=== PATIENT | male | born 1990 | race Caucasian/White ===

== ENCOUNTER → 2017-07-23 | Emergency (ER) | payer MEDICAID, SELFPAY | PROVIDERS: Emergency Provider Student in an Organized Health Care Education/Training Program; Family Provider Emergency Medicine; Visit Provider Student in an Organized Health Care Education/Training Program | DX: Z53.29 Procedure and treatment not carried out because of patient's decision for other reasons (principal) ==

== ENCOUNTER → 2017-09-01 16:42 | Outpatient (REF) | payer MEDICAID, SELFPAY ==
[2017-09-01 18:33] LABS: Basophils # 0.1 K/mm3 (0-0.2); Eosinophils # 0.1 K/mm3 (0.0-0.4); Eosinophils % 1.2 % (0.1-12.0); Hemoglobin 15.4 g/dL (14.1-18.0); Lymphocytes # 3.9 K/mm3 (0.7-4.5); Lymphocytes % 38.7 K/mm3 (10-50); Mean Corpuscular HGB Conc 34.3 g/dL (31.8-35.4); Mean Corpuscular Hemoglobin 28.7 pg (27.0-31.2); Mean Corpuscular Volume 83.9 fl (80-94); Mean Platelet Volume 8.6 fl (7.4-10.4); Monocytes # 0.6 K/mm3 (0.1-1.0); Neutrophils # 5.3 K/mm3 (1.8-7.8); Neutrophils % 53.2 % (37.0-80.0); Platelet Count 261 K/mm3 (142-424); Red Blood Count 5.37 M/mm3 (4.60-6.20); Red Cell Distribution Width 13.3 % (11.5-17.5)
[2017-09-01 19:04] LABS: Alanine Aminotransferase 129 U/L (12-78); Albumin Level 4.2 gm/dL (3.4-5.0); Albumin/Globulin Ratio 1.3 (1.1-1.8); Alkaline Phosphatase 134 U/L (46-116); Anion Gap 16.6 mEq/L (5-15); Aspartate Amino Transferase 62 U/L (15-37); Bilirubin,Total 0.3 mg/dL (0.2-1.0); Blood Urea Nitrogen 17 mg/dL (7-18); Calcium 9.7 mg/dL (8.5-10.1); Carbon Dioxide 25 mmol/L (21.0-32.0); Chloride 105 mmol/L (98-107); Chol/HDL Ratio 6.3 (1-3.5); Cholesterol 176 mg/dL (140-200); Creatinine,Serum 0.88 mg/dL (0.70-1.30); Estimated Glomerular Filt Rate 106 ml/min (>60); Free T4 (Free Thyroxine) 1.11 ng/dl (0.76-1.46); GFR (African American) 128 ML/MIN (>60); Globulin 3.3 gm/dl (1.3-3.2); Glucose 118 mg/dL (74-106); HDL Cholesterol 28 mg/dL (27-67); LDL Cholesterol 104 mg/dL (0-130); Potassium 4.6 mmoL/L (3.5-5.1); Sodium 142 mmol/L (136-145); Thyroid Stimulating Hormone 1.49 uIU/ml (0.358-3.740); Total Protein,Serum 7.5 gm/dL (6.4-8.2); Triglycerides 218 mg/dL (30-200); VLDL Cholesterol 44 mg/dL (0-40)
[2017-09-01 19:06] LABS: Hemoglobin A1C 8.3 % (0.0-7.0)
[2017-09-03 18:30] LABS: Vitamin D 25 Hydroxy 26.6 ng/mL (30.0-100.0)
== END ==
LOC: LAB 16:42
PROVIDERS: Visit Provider Nurse Practitioner Family
DX: R53.83 Other fatigue (principal)
CPT/HCPCS: 80053; 80061; 82652; 83036; 84439; 84443; 85025

== ENCOUNTER → 2017-09-19 10:01 | Outpatient (REF) | payer MEDICAID, SELFPAY ==
[2017-09-20 07:14] LABS: Hep A Ab, IgM Negative (Negative); Hepatitis B Core Antibody IgM Negative (Negative); Hepatitis B Surface Antigen Negative (Negative)
[2017-09-23 12:13] LABS: Hepatitis C Antibody <0.1 s/co ratio (0.0-0.9)
== END ==
LOC: LAB 10:01
PROVIDERS: Visit Provider Physician Assistant
DX: R79.89 Other specified abnormal findings of blood chemistry (principal)
CPT/HCPCS: 80074

== ENCOUNTER → 2020-01-30 13:23 | Outpatient (CLI) | payer BC, OTHER, SELFPAY ==
[2020-01-30 13:41] LABS: Chloride 97 mmol/L (98-107); Potassium 5.3 mmoL/L (3.5-5.1); Sodium 131 mmol/L (136-145)
[2020-01-30 13:43] LABS: Blood Urea Nitrogen 10 mg/dl (9-20); Estimated Glomerular Filt Rate 134 ml/min (>60); GFR (African American) 162 ML/MIN (>60)
[2020-01-30 13:44] LABS: Alanine Aminotransferase 57 U/L (12-78); Albumin Level 3.7 g/dl (3.5-5.0); Albumin/Globulin Ratio 1.4 (1.1-1.8); Alkaline Phosphatase 229 U/L (38-126); Anion Gap 16.3 mEq/L (5-15); Aspartate Amino Transferase 41 U/L (17-59); Bilirubin,Total 0.4 mg/dl (0.2-1.3); Calcium 8.6 mg/dl (8.4-10.2); Carbon Dioxide 23 mmol/L (22.0-30.0); Chol/HDL Ratio 11.5 (1-3.5); Cholesterol 173 mg/dl (140-200); Globulin 2.6 g/dL (1.3-3.2); HDL Cholesterol 15 mg/dl (40-60); Total Protein,Serum 6.3 g/dl (6.3-8.2)
[2020-01-30 13:46] LABS: Basophils # 0.1 K/mm3 (0-0.2); Basophils % 0.7 % (0.1-2.0); Eosinophils # 0.1 K/mm3 (0.0-0.4); Hematocrit 43.8 % (42.0-52.0); Hemoglobin 15.3 g/dL (14.1-18.0); Lymphocytes # 3.2 K/mm3 (0.7-4.5); Lymphocytes % 37.3 % (10-50); Mean Corpuscular HGB Conc 34.9 g/dL (31.8-35.4); Mean Corpuscular Hemoglobin 30.7 pg (27.0-31.2); Mean Corpuscular Volume 87.8 fl (80-94); Mean Platelet Volume 9.6 fl (7.4-10.4); Monocytes # 0.5 K/mm3 (0.1-1.0); Monocytes % 6.2 % (1.7-9.3); Neutrophils # 4.6 K/mm3 (1.8-7.8); Neutrophils % 54.7 % (37.0-80.0); Platelet Count 205 K/mm3 (142-424); Red Blood Count 4.98 M/mm3 (4.60-6.20); Red Cell Distribution Width 13.7 % (11.5-17.5); White Blood Count 8.5 K/mm3 (4.8-10.8)
[2020-01-30 13:52] LABS: Triglycerides 973 mg/dl (30-150)
[2020-01-30 13:54] LABS: Glucose 591 mg/dl (74-100)
[2020-01-30 13:55] LABS: Direct LDL Cholesterol 65.12 mg/dL (100-129)
[2020-01-30 14:03] LABS: T4 (Thyroxine) 8.2 ug/dl (5.53-11.0)
[2020-01-30 19:58] LABS: Hemoglobin A1C 12.3 % (4.0-6.0); Microalbumin < 6.000 mg/L (0-16.7)
== END ==
PROVIDERS: Visit Provider Nurse Practitioner Family
DX: E11.9 Type 2 diabetes mellitus without complications (principal); Z79.84 Long term (current) use of oral hypoglycemic drugs; Z79.899 Other long term (current) drug therapy
CPT/HCPCS: 80053; 80061; 82043; 83036; 84436; 84443; 85025

== ENCOUNTER → 2020-05-09 10:46 | Outpatient (CLI) | payer BC, SELFPAY ==
[2020-05-09 11:29] LABS: Basophils # 0.1 K/mm3 (0-0.2); Basophils % 0.8 % (0.1-2.0); Eosinophils # 0.1 K/mm3 (0.0-0.4); Hemoglobin 16.6 g/dL (14.1-18.0); Lymphocytes # 3.2 K/mm3 (0.7-4.5); Lymphocytes % 34.1 % (10-50); Mean Corpuscular Hemoglobin 30.5 pg (27.0-31.2); Mean Corpuscular Volume 84.7 fl (80-94); Mean Platelet Volume 8.6 fl (7.4-10.4); Monocytes # 0.5 K/mm3 (0.1-1.0); Monocytes % 5.8 % (1.7-9.3); Neutrophils # 5.5 K/mm3 (1.8-7.8); Neutrophils % 58.4 % (37.0-80.0); Platelet Count 219 K/mm3 (142-424); Red Blood Count 5.43 M/mm3 (4.60-6.20); Red Cell Distribution Width 13.6 % (11.5-17.5); White Blood Count 9.4 K/mm3 (4.8-10.8)
[2020-05-09 12:42] LABS: Chloride 99 mmol/L (98-107); Potassium 4.5 mmoL/L (3.5-5.1); Sodium 139 mmol/L (136-145)
[2020-05-09 12:44] LABS: Blood Urea Nitrogen 11 mg/dl (9-20)
[2020-05-09 12:45] LABS: Alanine Aminotransferase 48 U/L (12-78); Albumin Level 4.3 g/dl (3.5-5.0); Albumin/Globulin Ratio 1.7 (1.1-1.8); Alkaline Phosphatase 104 U/L (38-126); Anion Gap 16.5 mEq/L (5-15); Aspartate Amino Transferase 36 U/L (17-59); Bilirubin,Total 0.6 mg/dl (0.2-1.3); Calcium 9.7 mg/dl (8.4-10.2); Carbon Dioxide 28 mmol/L (22.0-30.0); Cholesterol 147 mg/dl (140-200); Estimated Glomerular Filt Rate 134 ml/min (>60); GFR (African American) 162 ML/MIN (>60); Globulin 2.6 g/dL (1.3-3.2); Glucose 294 mg/dl (74-100); Total Protein,Serum 6.9 g/dl (6.3-8.2); Triglycerides 355 mg/dl (30-150); VLDL Cholesterol 71 mg/dL (0-40)
[2020-05-09 12:46] LABS: Chol/HDL Ratio 5.3 (1-3.5); HDL Cholesterol 28 mg/dl (40-60)
[2020-05-09 13:16] LABS: Thyroid Stimulating Hormone 1.39 uIU/mL (0.465-4.68)
[2020-05-10 17:28] LABS: C-Peptide 9.4 ng/mL (1.1-4.4)
== END ==
PROVIDERS: Visit Provider Nurse Practitioner Family
DX: E11.9 Type 2 diabetes mellitus without complications (principal); E66.9 Obesity, unspecified; Z79.84 Long term (current) use of oral hypoglycemic drugs; Z79.899 Other long term (current) drug therapy
CPT/HCPCS: 36415; 80053; 80061; 83036; 84436; 84443; 84681; 85025

== ENCOUNTER → 2020-08-13 13:43 | Outpatient (CLI) | payer BC, OTHER, SELFPAY ==
[2020-08-13 14:17] LABS: Basophils # 0.1 K/mm3 (0-0.2); Basophils % 0.8 % (0.1-2.0); Eosinophils # 0.1 K/mm3 (0.0-0.4); Eosinophils % 1.3 % (0.1-12.0); Hematocrit 48.6 % (42.0-52.0); Hemoglobin 16.8 g/dL (14.1-18.0); Lymphocytes # 3.4 K/mm3 (0.7-4.5); Lymphocytes % 33.5 % (10-50); Mean Corpuscular HGB Conc 34.5 g/dL (31.8-35.4); Mean Corpuscular Hemoglobin 30.2 pg (27.0-31.2); Mean Corpuscular Volume 87.3 fl (80-94); Mean Platelet Volume 9.9 fl (7.4-10.4); Monocytes # 0.6 K/mm3 (0.1-1.0); Monocytes % 5.7 % (1.7-9.3); Neutrophils % 58.6 % (37.0-80.0); Platelet Count 230 K/mm3 (142-424); Red Blood Count 5.56 M/mm3 (4.60-6.20); Red Cell Distribution Width 13.6 % (11.5-17.5); White Blood Count 10.2 K/mm3 (4.8-10.8)
[2020-08-13 14:44] LABS: Chloride 98 mmol/L (98-107); Potassium 4.4 mmoL/L (3.5-5.1); Sodium 134 mmol/L (136-145)
[2020-08-13 14:46] LABS: Alanine Aminotransferase 59 U/L (12-78); Albumin Level 4.3 g/dl (3.5-5.0); Alkaline Phosphatase 144 U/L (38-126); Aspartate Amino Transferase 35 U/L (17-59); Bilirubin,Total 0.4 mg/dl (0.2-1.3); Blood Urea Nitrogen 9 mg/dl (9-20); Estimated Glomerular Filt Rate 134 ml/min (>60); GFR (African American) 162 ML/MIN (>60)
[2020-08-13 14:47] LABS: Albumin/Globulin Ratio 1.4 (1.1-1.8); Anion Gap 16.4 mEq/L (5-15); Calcium 9.8 mg/dl (8.4-10.2); Carbon Dioxide 24 mmol/L (22.0-30.0); Chol/HDL Ratio 7.1 (1-3.5); Cholesterol 205 mg/dl (140-200); HDL Cholesterol 29 mg/dl (40-60); Total Protein,Serum 7.3 g/dl (6.3-8.2)
[2020-08-13 14:50] LABS: Triglycerides 466 mg/dl (30-150)
[2020-08-13 14:58] LABS: Direct LDL Cholesterol 114.97 mg/dL (100-129)
[2020-08-13 15:03] LABS: T4 (Thyroxine) 8.4 ug/dl (5.53-11.0)
[2020-08-13 15:17] LABS: Thyroid Stimulating Hormone 1.17 uIU/mL (0.465-4.68)
[2020-08-13 15:18] LABS: Glucose 443 mg/dl (74-100)
[2020-08-14 14:21] LABS: C-Peptide 10.2 ng/mL (1.1-4.4)
== END ==
PROVIDERS: Visit Provider Nurse Practitioner Family
DX: E11.9 Type 2 diabetes mellitus without complications (principal); E55.9 Vitamin D deficiency, unspecified; I10 Essential (primary) hypertension; Z79.84 Long term (current) use of oral hypoglycemic drugs
CPT/HCPCS: 80053; 80061; 82306; 83036; 84436; 84443; 84681; 85025

== ENCOUNTER → 2020-10-24 07:57 | Outpatient (CLI) | payer BC, OTHER, SELFPAY ==
[2020-10-27 13:28] LABS: Adrenocorticotropic Hormone 16.3 pg/mL (7.2-63.3)
== END ==
PROVIDERS: Visit Provider Internal Medicine Endocrinology, Diabetes & Metabolism
DX: E66.01 Morbid (severe) obesity due to excess calories (principal)
CPT/HCPCS: 36415; 82024; 82533; 82626

== ENCOUNTER → 2020-10-26 08:58 | Outpatient (CLI) | payer BC, OTHER, SELFPAY ==
[2020-11-02 18:18] LABS: Cortisol,F,ug/L,U 19 ug/L (Undefined)
[2020-11-04 02:13] LABS: Cortisol,F,ug/24hr,U 42 ug/24 hr (5-64)
== END ==
PROVIDERS: PCP Nurse Practitioner Family; Visit Provider Internal Medicine Endocrinology, Diabetes & Metabolism
DX: E66.01 Morbid (severe) obesity due to excess calories (principal)
CPT/HCPCS: 82530

== ENCOUNTER 2021-04-14 09:50 | Emergency (ER) | payer BC, OTHER, SELFPAY ==
[2021-04-14 10:45] VITALS: BP 139/90; PULSE 84; RESP 18; TEMP 37; O2SAT 98; BMI 38.4
[2021-04-14 10:54] VITALS: BP 139/90; PULSE 84; RESP 18; TEMP 37
--- NOTE | 2021-04-14 11:08 | HMH.EDUTC ---
[facility] [place] Disposition Clinical Impression: Viral syndrome, Exposure to COVID-19 virus Disposition: Home, Self-Care Condition on Discharge: Good Instructions: DI for COVID-19 (Suspected or Confirmed ), Preventing the Spread of Coronavirus Discharge Instructions Additional Instructions: Drink plenty of fluids. Take tylenol or ibuprofen for pain or fever. Take the medications as directed. Follow up with your regular doctor. GO TO THE ER FOR ANY WORSENING SYMPTOMS Quarantine until you know the results of your covid-19 test. If it is positive, the health department should call you and give you further instructions about your length of Quarantine and other things. Notify your school or workplace of your results and follow their instructions regarding return to work/school. Prescriptions: Brompheniramine/Pseudoephed/Dm [Bromfed Dm Cough Syrup] 5 ml PO Q6HP PRN #240 ml PRN Reason: Cough Transmission Status: Received by [id number] Ondansetron [Zofran 4mg ODT] 4 mg PO DAILYP PRN #12 tab PRN Reason: Nausea Transmission Status: Received by [id number] Referrals: Bulmaro Elizabeth APRN [Primary Care Provider] - Forms: Work/School Release Time of Disposition: 11:19 Medical Decision Making - Medical Records Medical records reviewed: No: I reviewed the patient's medical records. - Sal Inquiry Pt receiving controlled substance: No Vital Signs: 04/14/21 10:45 04/14/21 10:54 Temperature 98.6 F 98.6 F Temperature Source Oral Pulse Rate 84 Pulse Rate [Left] 84 Respiratory Rate 18 18 Blood Pressure 139/90 Blood Pressure [Right Arm] 139/90 Blood Pressure Mean [Right Arm] 106 02 Sat by Pulse Oximetry 98 - Lab Data Lab results reviewed: Yes: I reviewed the patient's lab results. [facility] [place] HPI - General Stated complaint: covid test Time Seen by Provider: 04/14/21 11:08 Mode of Arrival: Ambulatory Source of Information: Patient Limitations: No Limitations Description of Symptoms (Recalled from Triage Doc. by RN): pt c/o congestion, diarrhea, cough, and nasal drainage. x2 days. HEENT Symptoms (Recalled from RN notes): Yes (congestion and nasal drainage) Resp Symptoms (Recalled from RN notes): Yes (cough) Skin Symptoms (Recalled from RN notes): No MS Symptoms (Recalled from RN notes): No Functional Status (Recalled from RN notes): na - History of Present Illness Provider Complaint: He states that for the past 2 days he has had a dry cough, nausea, and he has felt very tired. His is having similar symptoms. He has not been vaccinated against covid-19. He would like to be tested for covid-19. - Related Data Home Medications Medication Instructions Recorded Confirmed insulin glargine U-300 conc 300 10 unit SQ DAILY ml 10/15/20 10/15/20 unit/mL (1.5 mL) subcutaneous pen Previous Rx's Medication Instructions Recorded atorvastatin 10 mg tablet 10 mg PO DAILY #30 tab 01/31/20 blood sugar diagnostic See Rx Instructions .ROUTE 01/31/20 .MEDSUPPLY #100 each blood-glucose meter See Rx Instructions .ROUTE 01/31/20 .MEDSUPPLY #1 each lancets 21 gauge See Rx Instructions .ROUTE 01/31/20 .MEDSUPPLY #100 each aspirin 81 mg tablet,delayed 81 mg PO DAILY #30 tab 05/02/20 release lisinopril 2.5 mg tablet 2.5 mg PO DAILY #30 tab 08/04/20 metformin 500 mg tablet See Rx Instructions .ROUTE 08/04/20 .COMPLEX #120 tab sitagliptin 100 mg tablet 100 mg PO DAILY #30 tab 08/04/20 needle (disp) 26 gauge 26 gauge x See Rx Instructions .ROUTE 09/19/20 3/8 .MEDSUPPLY #100 each semaglutide 7 mg tablet 7 mg PO DAILY #30 tab 09/19/20 pen needle, diabetic 31 gauge x See Rx Instructions .ROUTE 09/22/20 5/16 .MEDSUPPLY #1200 each Brompheniramine/Pseudoephed/Dm 5 ml PO Q6HP PRN #240 ml 04/14/21 [Bromfed Dm Cough Syrup] Ondansetron [Zofran 4mg ODT] 4 mg PO DAILYP PRN #12 tab 04/14/21 Allergies Allergy/AdvReac Type Severity Reaction Status Date / Time venom-wasp A
== END 2021-04-14 11:32 | disposition home or self-care (01) ==
PROVIDERS: Emergency Provider Nurse Practitioner Family; PCP Nurse Practitioner Family
DX: Z20.822 Contact with and (suspected) exposure to COVID-19 (principal)
CPT/HCPCS: 99202; G0463; U0003

== ENCOUNTER → 2021-07-16 15:56 | Outpatient (CLI) | payer BC, OTHER, SELFPAY | PROVIDERS: PCP Nurse Practitioner Family; Visit Provider Nurse Practitioner | DX: Z20.822 Contact with and (suspected) exposure to COVID-19 (principal) | CPT/HCPCS: C9803; U0003; U0005 ==

== ENCOUNTER → 2021-07-23 10:06 | Outpatient (CLI) | payer BC, OTHER, SELFPAY | PROVIDERS: PCP Nurse Practitioner Family; Visit Provider Nurse Practitioner | DX: U07.1 COVID-19 (principal) | CPT/HCPCS: C9803; U0003; U0005 ==

== ENCOUNTER → 2022-10-27 15:30 | Outpatient (CLI) | payer BC, OTHER, SELFPAY ==
[2022-10-27 14:52] LABS: Basophils # 0.1 K/mm3 (0-0.2); Basophils % 1.3 % (0.1-2.0); Creatinine,Urine Random 280 mg/dL (Not Estab.); Eosinophils # 0.1 K/mm3 (0.0-0.4); Hematocrit 47.1 % (42.0-52.0); Hemoglobin 15.9 g/dL (14.1-18.0); Lymphocytes % 33.7 % (10-50); Mean Corpuscular HGB Conc 33.7 g/dL (31.8-35.4); Mean Corpuscular Hemoglobin 29.3 pg (27.0-31.2); Mean Platelet Volume 9.5 fl (7.4-10.4); Monocytes # 0.7 K/mm3 (0.1-1.0); Monocytes % 7.3 % (1.7-9.3); Neutrophils % 56.7 % (37.0-80.0); Platelet Count 304 K/mm3 (142-424); Red Blood Count 5.42 M/mm3 (4.60-6.20); Red Cell Distribution Width 13.4 % (11.5-17.5); White Blood Count 8.9 K/mm3 (4.8-10.8)
[2022-10-27 14:54] LABS: Microalbumin/Creatinine Ratio 3.7
[2022-10-27 15:00] LABS: Alanine Aminotransferase 25 U/L (12-78); Albumin Level 4.3 g/dl (3.5-5.0); Albumin/Globulin Ratio 1.7 (1.1-1.8); Alkaline Phosphatase 105 U/L (38-126); Aspartate Amino Transferase 28 U/L (17-59); Bilirubin,Total 0.7 mg/dl (0.2-1.3); Blood Urea Nitrogen 10 mg/dl (9-20); Calcium 8.6 mg/dl (8.4-10.2); Carbon Dioxide 29 mmol/L (22.0-30.0); Chloride 105 mmol/L (98-107); Chol/HDL Ratio 5.7 (1-3.5); Cholesterol 142 mg/dl (140-200); Estimated Glomerular Filt Rate 114 ml/min (>60); GFR (African American) 137 ML/MIN (>60); Globulin 2.5 g/dL (1.3-3.2); Glucose 105 mg/dl (74-100); HDL Cholesterol 25 mg/dl (40-60); Sodium 140 mmol/L (136-145); Total Protein,Serum 6.8 g/dl (6.3-8.2); Triglycerides 141 mg/dl (30-150); VLDL Cholesterol 28 mg/dL (0-40)
[2022-10-27 15:11] LABS: Direct LDL Cholesterol 102.58 mg/dL (100-129)
[2022-10-27 15:17] LABS: 25-OH Vitamin D, Total 25.3 ng/mL (30-100)
[2022-10-27 15:39] LABS: Hemoglobin A1C 5.6 % (4.0-6.0)
== END ==
PROVIDERS: PCP Physician Assistant; Visit Provider Physician Assistant
DX: E11.9 Type 2 diabetes mellitus without complications (principal); E55.9 Vitamin D deficiency, unspecified; Z79.899 Other long term (current) drug therapy
CPT/HCPCS: 80053; 80061; 82043; 82306; 82570; 83036; 84443; 85025

== ENCOUNTER 2025-02-27 09:23 | Outpatient (CLI) | payer BC, OTHER, SELFPAY ==
[2025-02-27 15:24] LABS: Hematocrit 44.7 % (42.0-52.0); Hemoglobin 15.3 g/dL (14.1-18.0); Immature Granulocytes % 0.3 %; Mean Corpuscular HGB Conc 34.2 g/dL (31.8-35.4); Mean Corpuscular Hemoglobin 29.3 pg (27.0-31.2); Mean Corpuscular Volume 85.6 fl (80-94); Nucleated Red Blood Cells % 0 %; Platelet Count 249 K/mm3 (142-424); Red Blood Count 5.22 M/mm3 (4.60-6.20); Red Cell Distribution Width-SD 39.3 fL; White Blood Count 9.7 K/mm3 (4.8-10.8)
[2025-02-27 15:36] LABS: Chloride 102 mmol/L (98-107)
[2025-02-27 15:37] LABS: Potassium 4.3 mmoL/L (3.5-5.1); Sodium 136 mmol/L (136-145)
[2025-02-27 15:39] LABS: Alanine Aminotransferase 64 U/L (12-78); Aspartate Amino Transferase 51 U/L (17-59); Blood Urea Nitrogen 14 mg/dl (9-20); Creatinine,Serum 0.70 mg/dl (0.66-1.25); Estimated Glomerular Filt Rate 130 ml/min (>60); GFR (African American) 157 ML/MIN (>60)
[2025-02-27 15:40] LABS: Alkaline Phosphatase 125 U/L (38-126); Bilirubin,Total 1.1 mg/dl (0.2-1.3); Calcium 9.5 mg/dl (8.4-10.2); Cholesterol 199 mg/dl (140-200); Glucose 194 mg/dl (74-100); Total Protein,Serum 7.0 g/dl (6.3-8.2); Triglycerides 373 mg/dl (30-150)
[2025-02-27 17:11] LABS: Albumin Level 4.3 g/dl (3.5-5.0); Albumin/Globulin Ratio 1.6 (1.1-1.8); Anion Gap 10.3 mEq/L (5-15); Carbon Dioxide 28 mmol/L (22.0-30.0); Globulin 2.7 g/dL (1.3-3.2); HDL Cholesterol 24 mg/dl (40-60)
[2025-02-27 17:53] LABS: Thyroid Stimulating Hormone 2.88 uIU/mL (0.465-4.68)
[2025-02-27 19:56] LABS: Hemoglobin A1C 9.9 % (4.0-6.0)
--- OUTSIDE RECORDS SUMMARY | 2025-02-28 14:47 | XMS_ITS | Clinical Summary ---
Author Organization [facility] Address [address] [facility] [address] [place] [address] Phone Care Team Providers Care Merchant Tailor Name Role Phone Unavailable Primary Care Provider Unavailabl e Allergies No known active allergies Medications semaglutide (OZEMPIC) 1 mg/dose (4 mg/3 mL) SubQ Pen InjectorIndicat ions:Type 2 diabetes mellitus with hyperglycemia, without long-term current use of insulin (HCC) Subcutaneous (Inject under the skin) 1 mg once a week. 3 mL 11 2 Active Active Problems Problem Noted Date Diagnosed Date Type 2 diabetes mellitus wit h hyperglycemia, without long-term current use of insulin 10/21/2020 Hypertension associated with diabetes 10/21/2020 Morbid obesity 10/21/2020 Medical History Medical History Date Comments Diabetes mellitus (HCC) Social History Tobacco Use Types Packs/Day Years Used Date Smoking Tobacco: Never Smokeless Tobacco: Current Sex and Gender Information Value Date Recorded Sex Assigned at Not on file Legal Sex Male 11:02 AM EST Gender Identity Not on file Sexual Orientation Not on file Obstetrics History Last Filed Vital Signs Vital Sign Reading Time Taken Comments Blood Pressure 119/82 10/21/2021 9:38 AM EDT Pulse 80 10/21/2021 9:38 AM EDT Temperature - - Respiratory Rate 18 10/21/2021 9:38 AM EDT Oxygen Saturation - - Inhaled Oxygen Concentration - - Weight 114.1 kg (251 lb 8 oz) 10/21/2021 9:38 AM EDT Height 175.3 cm (5' 9 ) 10/21/2021 9:38 AM EDT Body Mass Index 37.14 10/21/2021 9:38 AM EDT Plan of Treatment Health Maintenance Due Date Last Done Comments Annual Wellness Exam 11/07/1994 Kidney Health: eGFR 11/07/2001 Kidney Health: uACR 11/07/2001 Lipids 11/07/2001 DTaP/TDaP/Td (2 - Tdap) 05/03/2003 05/02/2003 Hepatitis B Vaccine (2 of 3 - 3-dose series) 05/30/2003 05/02/2003 Diabetic Eye Exam 11/07/2009 Pneumococcal Vaccine 0-49 (1 of 2 - PCV) 11/07/2010 Hemoglobin A1c 04/23/2022 10/21/2021, 12/25/2020, 10/21/2020 COVID-19 Vaccine (1 - 2023-2 5 season) 2024 Influenza Vaccine (#1) 2025 Meningococcal B Vaccine Aged Out No l onger eligible based on patient's age to complete this topic Procedures Procedure Name Priority Date/Time Associated Diagnosis Comments POCT HEMOGLOBIN A1C - HOME DEVICE Routine 10/21/2021 10:15 AM EDT Type 2 diabetes mellitus with hyperglycemia, without long-term current use of insulin (HCC) from Last 3 Months or Most Recently Relevant to Health Maintenance Results * (ABNORMAL) POCT HEMOGLOBIN A1C (10/21/2021 10:15 AM EDT) Hgb A1c 6.6(A) 4.0 - 6.0 % SEP OFFICE 10/21/2021 10:1 5 AM EDT us Augusto Escamilla MD POINT OF CARE TEST ORDERABLES Final Result SEP OFFICE from Last 3 Months or Most Recently Relevant to Health Maintenance Insurance [employer] PPO [employer] [facility] [place] [address]
--- OUTSIDE RECORDS SUMMARY | 2025-02-28 14:47 | XMS_ITS | Clinical Summary ---
Author Organization [facility] Address [address] [place] [id number] Phone [email or web address] Care Team Providers Care Concrete Panel Installer Name Role Phone Unavailable Primary Care Provider Unavailabl e Allergies Active Allergy Reactions Criticality Noted Date Comments Wasp Venom Protein Anaphylaxis High 06/21/2023 Medications Ozempic, 1 MG/DOSE, 4 MG/3ML solution pen-injector INJECT 1 MG SUBCUTANEOUSLY ONCE A WEEK Active Active Problems No known active problems Social History Tobacco Use Types Packs/Day Years Used Date Smoking Tobacco: Never Smokeless Tobacco: Current Snuff Tobacco Cessation:Ready to Q uit: Not Asked; Counseling Given: Not Answered Intimate Partner Violence Answer Date R ecorded Insults You Not on file 11/21/2020 Threatens You Not on file 11/21/2020 Screams at You Not on file 11/21/2020 Physically Hurt Not on file 11/21/2020 Intimate Partner Violence Score Not on file 11/21/2020 Stress Answer Date Recorded Stress in your Life Not on file 06/13/2024 Dealing with Stress 3 06/13/2024 Sex and Gender Information Value Date Recorded Sex Assigned at Not on file 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 Gender Identity Not on file Sexual Orientation Not on file Last Filed Vital Signs Vital Sign Reading Time Taken Comments Blood Pressure 123/85 06/21/2023 12:16 PM EST Pulse 85 06/21/2023 12:16 PM EST Temperature 35.9 C (96.6 F) 06/21/2023 12:16 PM EST Respiratory Rate - - Oxygen Saturation 98% 06/21/2023 12:16 PM EST Inhaled Oxygen Concentration - - Weight 115 kg (254 lb) 06/21/2023 12:16 PM EST Height 168.9 cm (5' 6.5 ) 06/21/2023 12:16 PM ES T Body Mass Index 40.38 06/21/2023 12:16 PM EST Plan of Treatment Health Maintenance Due Date Last Done Comments Dental Cleaning/Exam 1991 HIV Screening 1991 Hepatitis C Screening 1991 Tetanus Diphtheria and Pertu ssis Immunization (2 - Tdap) 05/03/2003 05/02/2003 Hepatitis B Immunization (2 of 3 - 3-dose series) 05/30/2003 05/02/2003 Hep B Infection Screening - Triple Screen 11/07/2009 Covid-19 Immunization (1 - 2 - season) 2024 Annual Preventive Exam 06/21/2024 06/21/2023 Influenza Immunization (#1) 2025 HIB Immunization Aged Out No longer e ligible based on patient's age to complete this topic HPV Immunization Aged Out No longer e ligible based on patient's age to complete this topic Hepatitis A Immunization Aged Out No longer eligible based on patient's age to complete this topic Pneumococcal: Ped (0 to 5 Yr s) and At-Risk Member (6 to 64 Yrs) Aged Out No longer e ligible based on patient's age to complete this topic Polio Immunization Aged Out No longer eligible based on patient's age to complete this topic Varicella Immunization Aged Out No lo nger eligible based on patient's age to complete this topic
== END 2025-02-27 23:59 | disposition home or self-care (01) ==
LOC: LAB.DROPOF 02-28 14:46
PROVIDERS: PCP Family Medicine; Visit Provider Family Medicine
DX: E03.9 Hypothyroidism, unspecified (principal); I10 Essential (primary) hypertension; R53.83 Other fatigue; E11.9 Type 2 diabetes mellitus without complications; E78.5 Hyperlipidemia, unspecified
CPT/HCPCS: 80053; 80061; 83036; 84443; 85025